=== PATIENT | male | born 1965 | race Caucasian/White ===

== ENCOUNTER 2019-06-08 17:00 | Outpatient (CLI) | payer OTHER | END 2019-06-08 17:01 | disposition home or self-care (01) | LOC: SLEEPLAB 17:00 | PROVIDERS: ATTEND Family Medicine | DX: G47.33 Obstructive sleep apnea (adult) (pediatric) (principal); R53.83 Other fatigue; R42 Dizziness and giddiness; R06.83 Snoring | CPT/HCPCS: 95806 ==

== ENCOUNTER 2025-08-24 07:58 | Outpatient (CLI) | payer BC | END 2025-08-24 07:59 | disposition home or self-care (01) | LOC: BICCT 07:58 | PROVIDERS: ATTEND Internal Medicine Critical Care Medicine | DX: R91.1 Solitary pulmonary nodule (principal) | CPT/HCPCS: 71250 ==